=== PATIENT | male | born 1985 | race Caucasian/White ===

== ENCOUNTER 2021-08-05 16:04 | Emergency (ER) | payer OTHER, SELFPAY ==
[2021-08-05 16:27] VITALS: PULSE 75; RESP 16; TEMP 36.6; O2SAT 98; BMI 24.5
[2021-08-05 17:11] LABS: COVID19 -Nasal RAPID Negative (Negative)
--- NOTE | 2021-08-05 19:20 | ED_ITS ---
HPI - URI/Sore Throat <JUAN Lux - Last Filed: 08/05/21 19:23> General Chief Complaint: Upper Respiratory Symptoms Stated Complaint: needs covid tests Time Seen by Provider: 08/05/21 17:21 History of Present Illness HPI Narrative: 36-year-old male presents to the emergency department for COVID testing. 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 He denies having any fever, shortness of breath, wheezing, nausea or vomiting, or diarrhea. He also denies any chest pain. Related Data Allergies Allergy/AdvReac Type Severity Reaction Status Date / Time No Known Drug Allergies Allergy Verified 08/05/21 16:30 Review of Systems <JUAN Lux - Last Filed: 08/05/21 19:23> Review of Systems Narrative: General: denies fever, chills, muscle aches Head/Neck: denies headache, neck pain Eyes: denies visual changes, eye pain nose/throat: +congestion Cardio: denies chest pain, palpitations Respiratory: denies shortness of breath, +cough GI: denies abdominal pain, nausea, vomiting, or diarrhea : denies dysuria, hematuria MSK: denies joint pain, muscle weakness Skin: denies rash, itching Neuro: denies numbness, tingling Exam <JUAN Lux - Last Filed: 08/05/21 19:23> Narrative Exam Narrative: Independently reviewed vitals signs and nursing notes. General: Awake, alert, nontoxic, no cardiorespiratory distress Head/Neck: Atraumatic, neck full range of motion Eyes: EOMI, conjunctiva normal Nose: nares patent, no rhinorrhea Mouth/Throat: moist mucus membranes, no oral lesions Cardio: Regular rate and rhythm, no peripheral edema Respiratory: respirations unlabored without wheezing, stridor, or rales. No retractions. GI: Abdomen soft, nontender MSK: Moves all extremities, neurovascularly intact Skin: Normal capillary refill, no rash Neuro: Normal speech and cognition, normal gait Initial Vital Signs Initial Vital Signs: Vital Signs Temperature 97.9 F 08/05/21 16:27 Pulse Rate 75 08/05/21 16:27 Respiratory Rate 16 08/05/21 16:27 Pulse Oximetry 98 08/05/21 16:27 <DO Ronnell Zaidi Last Filed: 08/06/21 07:39> Initial Vital Signs Initial Vital Signs: Vital Signs Temperature 97.9 F 08/05/21 16:27 Pulse Rate 75 08/05/21 16:27 Respiratory Rate 16 08/05/21 16:27 Pulse Oximetry 98 08/05/21 16:27 Course <JUAN Lux - Last Filed: 08/05/21 19:23> Orders Ordered: ED Orders 08/05/21 16:25 COVID19 -Nasal swab/Pre-Proc Stat Vital Signs Vital signs: Vital Signs - 8 hr 08/05/21 16:27 Temperature 97.9 F Pulse Rate 75 Respiratory Rate 16 Pulse Oximetry 98 <DO Ronnell Zaidi Last Filed: 08/06/21 07:39> Orders Ordered: ED Orders 08/05/21 16:25 COVID19 -Nasal swab/Pre-Proc Stat Vital Signs Vital signs: Vital Signs - 8 hr 08/05/21 16:27 Temperature 97.9 F Pulse Rate 75 Respiratory Rate 16 Pulse Oximetry 98 MDM - URI/Sore Throat <JUAN Lux - Last Filed: 08/05/21 19:23> Lab Data Labs: Lab Results 08/05/21 Range/Units 16:25 SARS-CoV-2 (PCR) Negative (Negative) MDM Narrative Medical decision making narrative: 36-year-old male presents to the emergency department for COVID testing after COVID exposure last week with upper respiratory symptoms including congestion, runny nose, cough, muscle aches. Presentation suggestive of viral syndrome/URI without evidence of hypoxia, respiratory distress, dehydration, or focal exam to suggest secondary bacterial infection. COVID negative. Discussed supportive treatments: Tylenol/Motrin as needed for pain/fever. OTC decongestant medications and/or antihistamines for symptomatic relief. Maintain adequate fluid intake. Follow-up with PCP as directed. Return to clinic/ER instructions discussed for new, not improving, or worsening symptoms. All questions answered. <DO Ronnell Zaidi Last Filed: 08/06/21 07:39> Lab Data Labs: Lab Results 08/05/21 Range/Units 16:25 SARS-CoV-2 (PCR) Negative (Negative) Discharge Plan Departure Patient Disposition: Home Clinical Impression: Upper respiratory infection Instructions: DI for Viral Upper Respiratory Infection -- Adult Activity Restrictions/Additional Instructions: *You have been diagnosed with a negative COVID test. Things that may be helpful for you include [id number] decongestants like Sudafed, the kind behind the counter is best for daytime, NyQuil can worked great for nighttime or Benadryl for a runny nose, Mucinex will be helpful for thick phlegm. Try stay hydrated, Motrin and Tylenol if you have a fever. I hope you feel better soon. *What to do: *Please continue to take your regular medications as directed. [ ] New medication prescriptions sent to your pharmacy: [ ] [ ] New medication written as a paper prescription [x ] No new medications given *Please follow up with your primary care provider in 2-3 days, call for an appointment. Let them know you were seen in the Emergency Department and that we ask that you be seen in follow up. We will electronically transmit a record of today's note if your PCP is in our system *If you do not have a primary care provider please contact the [facility] Resource line at [phone]. They will ask some questions about your medical history and help get you set up with a doctor in the community. *Return to Emergency Department if you should have any new, worsening or concerning symptoms, such as [fever greater than 101F, chills, worsening pain, persistent vomiting or other bothersome symptoms] <Zita Sotelo, - Last Filed: 08/06/21 07:39> Cosign ED Attending Andie Attestation: I was immediately available in the department for consultation. Documentation has been reviewed.
== END 2021-08-05 17:55 | disposition home or self-care (01) ==
PROVIDERS: Emergency Medicine; Emergency Provider Nurse Practitioner Critical Care Medicine
DX: J06.9 Acute upper respiratory infection, unspecified (principal); Z20.822 Contact with and (suspected) exposure to COVID-19
CPT/HCPCS: 87635; 99281; C9803